=== PATIENT | female | born 1975 | race Caucasian/White ===

== ENCOUNTER 2019-11-24 09:20 | Emergency (ER) | payer MEDICAID, SELFPAY ==
[2019-11-24 09:31] VITALS: BP 99/78; PULSE 97; RESP 16; TEMP 36.7; O2SAT 99; BMI 29.2
--- NOTE | 2019-11-24 09:35 | ED_ITS ---
HPI - Fall General: Chief Complaint: Fall Stated Complaint: RIGHT HIP AND ANKLE PAIN FALL Time Seen by Provider: 11/24/19 09:35 History of Present Illness: HPI Narrative: 44-year-old female who comes in she fell down 4 steps at home she kind of stumbled she thought she had an inversion injury of the right ankle there is no swelling she was unable to bear full weight on it. This happened this morning just prior to arrival. No previous injury to that ankle although she states she thought she was told she had a pelvic fracture related to childbirth. MD complaint: fall Onset (ago): minute(s) Fall from: standing and down stairs (#) (4) Place fall occurred: home Loss of consciousness: None Prolonged down time: no Symptoms prior to fall: none Context: tripped/slipped Location of injury: other (Right knee and ankle) Location of injury - extremities: Right: knee and ankle Severity scale (1-10): 5 Quality: sharp Associated symptoms-after fall: Reports no associated symptoms; Denies abdominal pain or chest pain Review of Systems Const: Denies: fever, chills, body aches, change in appetite, fatigue or malaise ENMT: Denies: throat pain, ear pain, nasal discharge or nasal congestion Card: Denies: chest pain, edema, shortness of breath on exertion or shortness of breath when lying down Resp: Denies: shortness of breath, productive cough or non-productive cough GI: Denies: abdominal pain, nausea, vomiting, vomiting blood, coffee grounds in vomit, diarrhea, constipation, bloating, blood in stool or black tarry stool : Denies: flank pain, difficulty urinating, painful urination, urinary frequency or urinary urgency Skin/Breast: Denies: rash or itching PFS ED PFSH: Surgical History (Updated 11/24/19 @ 12:12 by Kush Arita DO) History of appendectomy Social History Smoking and tobacco status: current every day smoker Physical Exam Const: COMMON NORMALS: no apparent distress GENERAL APPEARANCE: cooperative and comfortable ORIENTATION/CONSCIOUSNESS: Yes awake, Yes oriented to person, Yes oriented to place and Yes oriented to time HENMT: COMMON NORMALS: normocephalic, head/scalp atraumatic and hearing grossly normal bilaterally HEAD & SCALP: normocephalic and atraumatic Eye: COMMON NORMALS: PERRL, EOMs intact bilaterally, conjunctivae normal and no scleral icterus CONJUNCTIVA: Yes conjunctivae normal PUPIL: Yes PERRL Neck/C-Spine: COMMON NORMALS: full ROM, no lymphadenopathy, supple and no JVD Lymph: LYMPHATIC: no lymphadenopathy noted and no lymphedema noted Resp: COMMON NORMALS: normal respiratory effort, no retractions, no use of accessory muscles and clear to auscultation bilaterally AUSCULTATION: clear to auscultation bilaterally Cardio: COMMON NORMALS: no JVD, regular rate, regular rhythm and no murmurs RATE: regular rate RHYTHM: regular rhythm GI: COMMON NORMALS: soft to palpation and no hepatosplenomegaly AUSCULTATION: Yes normoactive bowel sounds PALPATION: Yes soft, No tender, No guarding and Yes no hepatosplenomegaly Extremity: COMMON NORMALS: normal to inspection, normal capillary refill, no clubbing, cyanosis or edema, no calf tenderness and no pedal edema NARRATIVE EXTREMITY EXAM: Examination the ankle there is no deformity no obvious swelling and is moderately tender dorsalis pedis pulse and posterior tibialis pulse are normal there is no redness or erythema no ecchymosis. Patient is able to flex and extend against resistance. Neuro: SENSORIUM/ORIENTATION: Yes oriented to person, Yes oriented to place and Yes oriented to time Skin: COMMON NORMALS: no rashes or lesions noted GENERAL SKIN EXAM: no rashes or lesions noted Course Vital Signs: Vital signs: Vital Signs Temperature 98.0 F 11/24/19 09:31 Pulse Rate 56 L 11/24/19 12:30 Respiratory Rate 16 11/24/19 12:30 Blood Pressure 136/75 11/24/19 12:30 Pulse Oximetry 98 11/24/19 12:30 MDM - Fall MDM Narrative: Medical decision making narrative: X-rays no acute injury of the ankle. Ice elevation rest compression anti-inflammatories as needed if no improvement recheck with primary care physician. Discharge Plan Discharge Patient Disposition: Home, Self-Care Clinical Impression: Ankle sprain Condition: Stable Prescriptions: New diclofenac sodium 75 mg tablet,delayed release (DR/EC) 75 mg PO Q12H PRN (Reason: pain) Qty: 20 RF: 0 No Action Tylenol Extra Strength 500 mg Tablet 1,000 mg PO PRN RF: 0 Discharge Orders: Discharge Order (Routine); Ordered 11/24/19 Ordered By: Kush Arita Referrals: Deanne Scott FNP-C [Primary Care Provider] - Discharge Diet: Usual diet Discharge Activity: Increase activity as tolerated Activity Restrictions/Additional Instructions: If not improving over the next 3 to 4 days follow-up with your primary care doctor. Discharge Date/Time: 11/24/19 12:30 Coding Level of Care Code ED Special Inspector for Chg Fwd Exam Comprehensive
[2019-11-24 09:47] VITALS: PULSE 84; RESP 18; O2SAT 98
--- NOTE | 2019-11-24 09:48 | XR_ITS ---
WS: [id number] XR knee RT 3V* [id number] REASON FOR EXAM: Fall knee pain FINDINGS: 4 views of the right knee show normal meniscal spaces at the knee. The patella shows normal patellofemoral articulation. The patella tibial space is normal. No fractures or dislocations are seen. XR/XR knee RT 3V* [id number] IMPRESSION: Negative right knee for fractures.
--- NOTE | 2019-11-24 09:48 | XR_ITS ---
WS: [id number] XR foot RT min 3V* [id number] REASON FOR EXAM: Fall ankle pain FINDINGS: Small calcaneal spur is noted. No fractures of the phalanges, metatarsals, tarsals. The calcaneus shows no fractures. There is a small retrocalcaneal exostosis seen. There is mild degenerate changes of the first metatarsal tarsal articulation. XR/XR foot RT min 3V* [id number] IMPRESSION: Mild osteoarthritic changes of the foot Calcaneal spur with retrocalcaneal exostosis.
--- NOTE | 2019-11-24 09:48 | XR_ITS ---
WS: [id number] XR hip RT 2-3V wo/w pel* [id number] REASON FOR EXAM: Fall hip pain FINDINGS: The capital head, neck, and intertrochanteric areas show no definite fractures. The acetabulum shows no fractures. The ilium, ischium, and pubis on the right were normal. XR/XR hip RT 2-3V wo/w pel* [id number] IMPRESSION: Negative right hip
[2019-11-24] MEDS: ketorolac 60 mg/2 mL INJ IM (10:28)
[2019-11-24 10:46] VITALS: PULSE 61; RESP 18; O2SAT 99
--- NOTE | 2019-11-24 11:08 | XR_ITS ---
WS: [id number] XR ankle RT min 3V* [id number] REASON FOR EXAM: Fall pain FINDINGS: The ankle mortise was normal. The tibia, fibula, talus are all normal with no fractures. Soft tissue swelling over the medial and lateral malleolus are normal. XR/XR ankle RT min 3V* [id number] IMPRESSION: Negative right ankle.
[2019-11-24 11:31] VITALS: BP 116/74; PULSE 58; RESP 18; O2SAT 98
[2019-11-24 12:30] VITALS: BP 136/75; PULSE 56; RESP 16; O2SAT 98
== END 2019-11-24 12:30 | disposition home or self-care (01) ==
PROVIDERS: Emergency Provider Family Medicine; Family Provider Nurse Practitioner Family; PCP Nurse Practitioner Family
DX: S93.401A Sprain of unspecified ligament of right ankle, initial encounter (principal); W10.8XXA Fall (on) (from) other stairs and steps, initial encounter; F17.210 Nicotine dependence, cigarettes, uncomplicated
CPT/HCPCS: 12345; 73502; 73562; 73610; 73630; 96372; 99283; E0114; J1885

== ENCOUNTER 2021-04-04 02:29 | Emergency (ER) | payer MEDICAID, SELFPAY ==
[2021-04-04 02:40] VITALS: BP 105/76; PULSE 89; RESP 16; O2SAT 95; BMI 29.4
[2021-04-04] MEDS: HYDROcodone-acetaminophen 7.5-325 mg Tablet 1 TAB PO (02:54)
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
[2021-04-04] MEDS: tetanus-diphtheria tox (adult) 0.5 mL SDV IM (03:49)
[2021-04-04 03:54] VITALS: BP 114/76; PULSE 84; RESP 20; O2SAT 97
[2021-04-04 06:10] LABS: HCG Qualitative Urine. Negative (Negative)
[2021-04-04 06:36] VITALS: BP 123/86; PULSE 95; RESP 18; O2SAT 98
== END 2021-04-04 06:30 | disposition home or self-care (01) ==
PROVIDERS: Emergency Provider Emergency Medicine
DX: S51.811A Laceration without foreign body of right forearm, initial encounter (principal); W25.XXXA Contact with sharp glass, initial encounter; F17.210 Nicotine dependence, cigarettes, uncomplicated; Z23 Encounter for immunization
CPT/HCPCS: 12002; 73130; 81025; 90471; 90714; 99282